=== PATIENT | male | born 1965 | race Caucasian/White ===

== ENCOUNTER → 2017-04-28 | Outpatient (CLI) | payer BC ==
--- NOTE | 2017-04-28 09:50 | DIAGNOSTIC IMAGING REPORT ---
CERVICAL WITHOUT CONTRAST CLINICAL HISTORY: 51 years-old Male presenting with MS, history of cervical lesions. TECHNIQUE: Multisequence, multiplanar MR imaging of the cervical spine was performed without the use of intravenous contrast. IV contrast: None. COMPARISON: 04/07/2016. FINDINGS: Localizer images: Unremarkable. Normal cervical lordosis. Vertebral bodies maintain normal height, alignment, bone marrow signal intensity. No significant disc height loss. Disc osteophyte complexes noted at C5-6 and C6-7. Minimal effacement at C5-6 results with greater degree of effacement at C6-7 in combination with ligamentum flavum hypertrophy. This is not a similar to the prior exam. Uncovertebral hypertrophy at C6-7 also results in mild bilateral neural foraminal narrowing. Degenerative changes at the atlantoaxial articulation. The previously noted abnormal spinal cord signal intensity along the left lateral aspect of the cord at C4-5 persists (series 7 image 9). This is not significantly changed in size or distribution from the prior exam. The previously suggested abnormal signal intensity in the left aspect of the spinal cord at C6-7 is not appreciated on the current exam. No convincing evidence of a new spinal cord lesion. Overall the spinal cord is normal in morphology. Craniocervical junction demonstrates pontine white matter lesions. Paraspinal soft tissues within normal limits. IMPRESSION: 1. Stable appearance of the white matter lesion in the spinal cord at C4-5. Previously suggested lesion at C6-7 is not appreciated on the current exam. No convincing evidence of a new spinal cord lesion. 2. Pontine white matter lesions as seen on prior exam. 3. Essentially stable spinal stenosis resulting from disc osteophyte complexes at C5-6 and C6-7. Electronically signed by: Salo Kramer M.D. 04/28/2017 9:49 AM Dictated Date/Time: 04/28/2017 9:41 AM
== END | disposition home or self-care (01) ==
LOC: C.MRIBC 08:29
PROVIDERS: ATTEND Psychiatry & Neurology Neurology
DX: G35 Multiple sclerosis (principal)

== ENCOUNTER → 2017-04-29 | Outpatient (CLI) | payer BC ==
--- NOTE | 2017-04-29 09:54 | DIAGNOSTIC IMAGING REPORT ---
BRAIN W/O FOR MS CLINICAL HISTORY: MS demyelinating disorder TECHNIQUE: Multiaxial MRI acquisition COMPARISON STUDY: 04/08/2016 FINDINGS: Multiple foci of increased signal throughout cerebral hemispheres consistent with that of a demyelinating disorder. No foci of increased signal on diffusion-weighted images. No new or interval findings. All foci described previously are unchanged. Ventricular system is midline. Internal auditory canals are symmetric. Optic nerves appear symmetric. Internal artery canals are symmetric. IMPRESSION: 1. Stable MRI of brain with no change in the multiple foci of increased signal throughout both cerebral hemispheres. 2. No evidence for new interval or progressive process. 3. No change from the prior exam. The above report was generated using voice recognition software. It may contain grammatical, syntax or spelling errors. Electronically signed by: Marcus Araiza M.D. 04/29/2017 9:53 AM Dictated Date/Time: 04/29/2017 9:48 AM
== END | disposition home or self-care (01) ==
LOC: C.MRIBC 08:27
PROVIDERS: ATTEND Psychiatry & Neurology Neurology
DX: G35 Multiple sclerosis (principal)

== ENCOUNTER 2017-09-04 14:29 | Emergency (ER) | payer OTHER ==
[~2017-09-04] VITALS: Ht 180.3 cm; Wt 96.7 kg
[~2017-09-04 14:29] MED LIST: ASPI81TA28 PO; COEN1CAP7 PO; EPP3/2 IM; FENO67CA2 PO; GLAT1INJ INJ; LISI-725 PO; MULT-506 PO; OMEG10007 PO; PHEN-905 PO; VITAMIN D PO
[2017-09-04 14:33] VITALS: TEMP 36.6; Ht 180.3 cm; Wt 96.7 kg
[2017-09-04] MEDS ORDERED: XYLOCAINE 1%/SOD BICARB 20 ML VIAL INFIL STA (14:43)
[2017-09-04] MEDS ORDERED: DIPHTHERIA/TETANUS/PERTUSSIS 0.5 ML SYR/VIAL IM. ONE (14:45)
[2017-09-04] MEDS ORDERED: CHOL400T PO (14:51)
--- NOTE | 2017-09-04 14:53 | EMERGENCY ROOM VISIT NOTE ---
ED Visit Note First contact with patient: 14:37 Chief Complaint: "smashed finger" History of Present Illness: This patient is a 52-year-old male who presents to the Emergency Department via private vehicle accompanied by for evaluation of their right fifth digit laceration. Patient sustained the laceration while operating a log splitter at home. They report a moderate amount of bleeding initially. They deny any numbness or tingling into the distal extremity. They report no decreased range of motion of the affected digit. Patient rates his current discomfort as a 2/10. Patient's Tetanus status is not currently up-to- date. Medications: As noted below Allergies: Doxycycline and bee stings PMH: No pertinent SHx: Patient lives locally with family. ROS: All pertinent positive and negative review of systems are appropriately documented in the History of Present Illness. Physical Exam: VITAL SIGNS - Vital signs and nursing notes were reviewed. Stable. GENERAL -52-year-old male appearing his stated age who is in no acute distress. Communicates well with provider and answers questions appropriately. SKIN - There is a large skin avulsion overlying the medial aspect of the patient 's right fifth digit extending from the DIP distally just sparing the bone and fingernail. The total size of this is approximately 2 cm in length by 1.5 cm in width. This is an avulsion with no skin flap. Upon further examination there are no deep structures including vessel, tendon, or bony structures appreciated. There is no active bleeding noted. MUSCULOSKELETAL - Laceration as described above. +5/5 strength appreciated of the affected digit. Full range of motion of the affected digit. NEUROLOGIC -neurovascularly intact in the affected digit with excellent blood flow distally. VASCULAR - Capillary refill was brisk. IMAGING: R FINGER(S) MIN 2 VIEWS ROUTINE CLINICAL HISTORY: R 5th digit crushed in log splitter COMPARISON: None. DISCUSSION: The bones and joint spaces appear intact. There is no evidence of fracture, dislocation or bony disease. Considerable soft tissue disruption with a partial substance loss overlying the distal phalanx. IMPRESSION: Soft tissue disruption. No acute bony abnormality. The above report was generated using voice recognition software. It may contain grammatical, syntax or spelling errors. Electronically signed by: Marcus Araiza M.D. 09/04/2017 3:12 PM Dictated Date/Time: 09/04/2017 3:11 PM ED Course: Patient was seen and evaluated by myself. Risks and benefits of performing primary wound closure versus no repair were discussed with the patient who verbalizes understanding. Verbal consent was obtained prior to performing the procedure. X-ray was obtained. No acute fracture. I did discuss the case with the on-call cost specialist, Dr. Erwin. He recommended suturing if able, and a dry dressing with Adaptic and follow-up in the office. He offered either Wednesday or Wednesday for the patient. This was relayed to the patient and the patient will call to establish this appointment. 5 cc of 1% buffered lidocaine was used to perform a digital block of the right fifth digit. The wound was cleansed and prepped in the typical sterile fashion utilizing normal saline and Betadine. Exeros irrigation system was utilized to pulsatile irrigate the wound. There was debris removed. The wound was sterilely draped. Once proper anesthetization was established, the wound was further examined and demonstrated an avulsed piece of skin without bone showing. The wound was copiously irrigated with normal saline and Betadine. The wound was closed using 3 simple, 4-0 nylon sutures with the wound edges being better approximated and excellent hemostasis. Patient tolerated the procedure well. No complications were met. The wound was cleansed and dressed with an Adaptic dressing. Patient was observed for some time to ensure no bleedthrough bleeding. A metal splint was provided as needed short prescription for oxycodone was given as well as Keflex. Patient received their Adacel vaccination. Patient educated on worrisome symptoms for return visit to the Emergency Department. Patient discharged to home in good condition. No red flags in the [employer] drug monitoring system. In the evaluation and treatment of this patient, the following differential diagnoses were considered: Finger Fracture, Finger Dislocation, Finger Sprain, Finger Contusion, Jersey Finger, or Mallet Finger. Current/Historical Medications Scheduled Aspirin (Aspirin Ec), 81 MG PO QAM Cephalexin Monohydrate (Keflex), 500 MG PO QID Cholecalciferol (Vitamin D), 400 UNITS PO QAM Coenzyme Q10 (Ubidecarenone) (Coq10), 200 MG PO QAM Epinephrine (Epipen), 0.3 MG IM UD Fenofibrate (Tricor), 67 MG PO QAM Fish Oil ([place]-3), 1 CAP PO QAM Glatiramer Acetate (Copaxone), 40 MG INJ 3XWEEK Lisinopril (Zestril), 20 MG PO QAM Multivitamin (Multivitamin), 1 TAB PO QAM Scheduled PRN Oxycodone Ir (Roxicodone Ir), 1-2 TAB PO Q6 PRN for Pain Xfiwbhztfqxwu-Gahqvolfeh-Mipfc (Nyquil Severe Cold/Flu 5-6.25-10-325 mg/15Ml), 30 ML PO HS PRN for RN Allergies Coded Allergies: BEE STING (Verified Allergy, Unknown, ANAPHYLAXIS, 09/04/17) Doxycycline (Verified Allergy, Unknown, "THROAT BURNING, TROUBLE SWALLOWING", 09/04/17) Vital Signs Date Time Temp Pulse Resp B/P (MAP) Pulse Ox O2 Delivery O2 Flow Rate FiO2 09/04/17 14:33 36.6 105 18 124/79 96 Room Air Medications Administered Medications (Trade) Dose Ordered Sig/Lima Route Start Time Stop Time Status Last Admin Dose Admin Diphtheria/ Pertussis/Tetanus Vacc (Adacel Inj) 0.5 ml ONCE ONCE IM. 09/04/17 14:45 09/04/17 14:46 DC 09/04/17 14:56 0.5 ML Departure Information Impression Primary Impression: Injury, crush, finger Dispostion Home / Self-Care Condition GOOD Prescriptions Oxycodone Ir (Roxicodone Ir) 5 Mg Tab 1-2 TAB PO Q6 Y for Pain, #15 TAB For Initial Treatment Prov: Stephane Campos PA-C 09/04/17 Cephalexin Monohydrate (Keflex) 500 Mg Cap 500 MG PO QID for 7 Days, #28 CAP Prov: Stephane Campos PA-C 09/04/17 Referrals Chris Galvin M.D. (PCP) Rodríguez Erwin MD Patient Instructions [facility] Additional Instructions Discharge Instructions: You have received 3 sutures on your finger. These sutures are NOT dissolvable and WILL need to be removed by a health care provider in 14 days. You can return to the Emergency Department or contact your Primary Care Provider to have the sutures removed (or orthopedic doctor) Please call the hand specialist first thing Wednesday morning to establish appointment. He notes that he could either see you Wednesday in [place] or [place] here in [place]. Wherever you would like to go please call that number first thing in the morning. Please indicate that you were seen in the emergency department on Wednesday and we personally spoke with Dr. Erwin and he would like to see you that day. [facility] [address] [place] [address] view less info [facility] [address] [place] [address] view less info Please wear the splint for comfort until the sutures are removed. Keflex 500 mg every 6 hours for infection prevention. This is an antibiotic. Oxycodone 1 tablet every 4-6 hours as needed for pain. This is a narcotic medication please no driving with this. Proper wound care is essential for adequate wound healing and infection prevention. Please do not submerge the wound. Please leave the existing dressing on for 2 days then change daily. Do not submerge in water. Look for signs of infection of the wound including: increased pain, swelling, foul discharge, streaking, or increased temperature. If any of these are noticed you should return to the Emergency Department for further assessment and treatment. As with any laceration you may have received nerve damage to the surrounding tissues. This damage may or may not be permanent. You should keep the area covered with sunscreen for the first 6 months to 1 year when at risk for exposure to help minimize scarring. You can also use scar reducing creams or Vitamin E oil to help minimize scarring. For pain control, you can use the following kyze-ogq-xvsjnqg medicines (if >12 yo): - Regular strength (325mg/tab) Tylenol (acetaminophen) 2 tabs every 4-6 hours as needed. Do not exceed 12 tablets in a 24 hour period. Avoid taking more than 3 grams (3000 mg) of Tylenol per day. This includes any other sources of acetaminophen you may take on a regular basis. - Regular strength (200 mg/tab) Advil (ibuprofen) 1-2 tabs every 4-6 hours as needed. Do not exceed a dose of 3200 mg per day. Return to the emergency department if your symptoms worsen despite treatment course outlined above.
--- NOTE | 2017-09-04 15:14 | DIAGNOSTIC IMAGING REPORT ---
R FINGER(S) MIN 2 VIEWS ROUTINE CLINICAL HISTORY: R 5th digit crushed in log splitter COMPARISON: None. DISCUSSION: The bones and joint spaces appear intact. There is no evidence of fracture, dislocation or bony disease. Considerable soft tissue disruption with a partial substance loss overlying the distal phalanx. IMPRESSION: Soft tissue disruption. No acute bony abnormality. The above report was generated using voice recognition software. It may contain grammatical, syntax or spelling errors. Electronically signed by: Marcus Araiza M.D. 09/04/2017 3:12 PM Dictated Date/Time: 09/04/2017 3:11 PM
[2017-09-04] MEDS ORDERED: CEPH500C PO (16:26)
[2017-09-04] MEDS ORDERED: OXYC1TAB3 PO (16:26)
[2017-09-04 16:44] VITALS: BP 125/81; PULSE 99; O2SAT 97
== END 2017-09-04 16:44 | disposition home or self-care (01) ==
LOC: C.EDB 14:31 → C.EDD 16:44
DX: S67.196A Crushing injury of right little finger, initial encounter (principal); S61.206A Unspecified open wound of right little finger without damage to nail, initial encounter; W31.89XA Contact with other specified machinery, initial encounter; Y92.009 Unspecified place in unspecified non-institutional (private) residence as the place of occurrence of the external cause; Y93.I9 Activity, other involving external motion; Y99.8 Other external cause status; Z23 Encounter for immunization; Z79.82 Long term (current) use of aspirin; Z91.030 Bee allergy status; Z88.1 Allergy status to other antibiotic agents

== ENCOUNTER → 2017-11-01 | Outpatient (CLI) | payer OTHER ==
[~2017-11-01] MED LIST changes: +CHOL400T PO; +OXYC1TAB3 PO; -VITAMIN D PO
--- NOTE | 2017-11-01 12:46 | DIAGNOSTIC IMAGING REPORT ---
CHEST 2 VIEWS ROUTINE CLINICAL HISTORY: Z01.818 ENCOUNTER FOR OTHER PREPROCEDURAL EXAMINATION PREOPERATIVE CHEST, recent pneumonia. Patient just finished antibiotics. Persistent wheezing. COMPARISON STUDY: 09/01/2017 FINDINGS: The cardiac and mediastinal contours are normal. There is no evidence of focal pulmonary consolidation. There is no evidence of failure. No pleural effusions are visualized.[ IMPRESSION: No active disease in the chest. Electronically signed by: Bismark Butterfield M.D. 11/01/2017 12:44 PM Dictated Date/Time: 11/01/2017 12:44 PM
== END | disposition home or self-care (01) ==
LOC: C.RAD 12:20
PROVIDERS: ATTEND Nurse Practitioner Family
DX: Z01.818 Encounter for other preprocedural examination (principal)

== ENCOUNTER 2017-11-11 08:21 | Day surgery (SDC) | payer BC, OTHER ==
[2017-09-01 08:38] VITALS: BMI 28.0
--- NOTE | 2017-09-01 09:04 | PAT Medication Instructions ---
Service Date Sep 01, 2017. Current Home Medication List Aspirin (Aspirin Ec), 81 MG PO QAM Coenzyme Q10 (Ubidecarenone) (Coq10), 200 MG PO QAM Epinephrine (Epipen), 0.3 MG IM UD Fenofibrate (Tricor), 67 MG PO QAM Fish Oil ([place]-3), 1 CAP PO QAM Glatiramer Acetate (Copaxone), 40 MG INJ 3XWEEK Lisinopril (Zestril), 20 MG PO QAM Multivitamin (Multivitamin), 1 TAB PO QAM Jspvjsushmjwf-Qzavvevuww-Mnouc (Nyquil Severe Cold/Flu 5-6.25-10-325 mg/15Ml), 30 ML PO HS PRN for RN [Vitamin D], 400 UNITS PO QAM Medication Instructions For Your Scheduled Surgery - Hold the following medications starting 09/02/17: Fish Oil ([place]-3), 1 CAP PO QAM Coenzyme Q10 (Ubidecarenone) (Coq10), 200 MG PO QAM - Check with prescribing physician for instructions: Glatiramer Acetate (Copaxone), 40 MG INJ 3XWEEK - Hold the following medications 24 hours prior to surgery: Fenofibrate (Tricor), 67 MG PO QAM - Hold the following medications the morning of surgery: Lisinopril (Zestril), 20 MG PO QAM Multivitamin (Multivitamin), 1 TAB PO QAM [Vitamin D], 400 UNITS PO QAM - Take the following medications the morning of surgery with a sip of water: Epinephrine (Epipen), 0.3 MG IM UD (if needed) Aspirin (Aspirin Ec), 81 MG PO QAM (okay to continue per surgeon) - Take the following medications as scheduled the night before surgery: Kqtqbdchvyupw-Cknyydmnla-Mzrig (Nyquil Severe Cold/Flu 5-6.25-10-325 mg/15Ml), 30 ML PO HS PRN for RN (if needed) Epinephrine (Epipen), 0.3 MG IM UD (if needed) If you have any questions please call us at [phone] or or [phone]
--- NOTE | 2017-09-01 09:38 | DIAGNOSTIC IMAGING REPORT ---
CHEST 2 VIEWS ROUTINE HISTORY: 52 years-old Male PAT preoperative exam. No acute chest complaints. COMPARISON: None available TECHNIQUE: PA and lateral views of the chest FINDINGS: Cardiac mediastinal and hilar silhouettes are within normal limits. There is no pneumothorax or pleural effusion. Mild right hemidiaphragmatic elevation. Linear subsegmental left basilar and right perihilar opacities suggest atelectasis. The bones of the chest appear grossly intact. IMPRESSION: No acute process. The above report was generated using voice recognition software. It may contain grammatical, syntax or spelling errors. Electronically signed by: Junior Isabel M.D. 09/01/2017 9:37 AM Dictated Date/Time: 09/01/2017 9:33 AM
[2017-09-01 10:22] LABS: BASO % 0.4 %; BASO ABS # 0.02 K/uL (0-0.2); EOS % 4.2 %; EOS ABS # 0.22 K/uL (0-0.5); HEMATOCRIT 41.3 % (42-52); HEMOGLOBIN 15.4 g/dL (14.0-18.0); IG# 0.01 K/uL (0.00-0.02); LYMPH % 34.6 %; MEAN CELL VOLUME 92.8 fL (80-100); MEAN CORPUSCULAR HEMOGLOBIN 34.6 pg (25-34); MEAN CORPUSCULAR HGB CONC 37.3 g/dl (32-36); MEAN PLATELET VOLUME 9.2 fL (7.4-10.4); MONO % 6.9 %; MONO ABS # 0.36 K/uL (0.11-0.59); NEUT % 53.7 %; NEUT ABS # 2.79 K/uL (1.4-6.5); PLATELET COUNT 323 K/uL (130-400); RED CELL DISTRIBUTION WIDTH CV 13.1 % (11.5-14.5); RED CELL DISTRIBUTION WIDTH SD 44.2 fL (36.4-46.3)
[2017-09-01 10:38] LABS: CREATININE 1.12 mg/dl (0.60-1.40); POTASSIUM 3.6 mmol/L (3.5-5.1)
[2017-11-09 08:36] VITALS: BMI 28.0
[~2017-11-11] VITALS: Ht 180.3 cm; Wt 93.7 kg
[~2017-11-11 08:21] MED LIST changes: +CHOL1000 PO; -CHOL400T PO; +FENO54TA PO; -FENO67CA2 PO; +LACTATED RINGER'S 1000ML 1,000 ML IV SCH; -OXYC1TAB3 PO
[2017-11-11 08:53] VITALS: BP 154/93; PULSE 103; TEMP 36.9; O2SAT 97; Ht 180.3 cm; Wt 93.7 kg
[2017-11-11] MEDS ORDERED: MIDAZOLAM HCL 1 MG/ML 2ML VIAL ONE (10:24)
[2017-11-11] MEDS ORDERED: FENTANYL CITRATE INJ 50 MCG/1 ML 2 ML VIAL ONE ×2 (10:24→11:15)
[2017-11-11] MEDS ORDERED: FENTANYL CITRATE INJ 50 MCG/1 ML 2 ML VIAL IV PRN (10:45)
[2017-11-11] MEDS ORDERED: ATROPINE SULFATE 0.1 MG/ML 5ML SYR IV PRN (10:45)
[2017-11-11] MEDS ORDERED: ONDANSETRON INJ 2 MG/ML 2 ML VIAL IV PRN ×2 (10:45→12:15)
[2017-11-11] MEDS ORDERED: EpHEDrine SULFATE INJ 50 MG/ML AMP IV PRN (10:45)
[2017-11-11] MEDS ORDERED: LABETALOL HCL IV 5 MG/ML 20ML IV PRN (10:45)
[2017-11-11] MEDS ORDERED: HYDROmorphone INJ 0.5 MG/0.5 ML SYR IV PRN (10:45)
[2017-11-11] MEDS ORDERED: PHENYLEPHRINE 100MCG/ML 5ML SYR IV PRN (10:45)
[2017-11-11] MEDS ORDERED: PROMETHAZINE HCL INJ 12.5 MG in SODIUM CHLORIDE 0.9% 50ML 50 ML IV PRN (10:45)
--- NOTE | 2017-11-11 11:00 | History & Physical Bridge Note ---
H&P Re-Evaluation Bridge Note: I have examined the patient, reviewed the History & Physical and in the interval since the performance of the History & Physical I have noted the following changes of clinical significance: No changes noted pt marked SO at bedside
[2017-11-11] MEDS ORDERED: OXYC-57 PO (11:01)
[2017-11-11] MEDS ORDERED: LIDOCAINE HCL 1% 20 ML VIAL ONE (11:03)
[2017-11-11] MEDS ORDERED: BACITRACIN 50000 UNIT VIAL ONE (11:03)
--- NOTE | 2017-11-11 11:03 | Discharge Instructions ---
Discharge Instructions Date of Service November 11, 2017. Visit Reason for Visit: Left Inguinal Hernia Discharge Discharge Diagnosis / Problem: repair of hernia Discharge Goals Goal(s): Decrease discomfort Activity Recommendations Activity Limitations: as noted below Lifting Limitations: no more than 10 pounds Shower/Bathe: tomorrow Driving or Machine Use: resume 3 days after discharge Anesthesia . Post Anesthesia Instructions: If you have had General Anesthesia or IV Sedation: * Do not drive today. * Resume driving when surgeon permits. * Do not make important decisions or sign legal documents today. * Call surgeon for: 1. Temperature elevations greater than 101 degrees F. 2. Uncontrollable pain. 3. Excessive bleeding. 4. Persistent nausea and vomiting. 5. Medication intolerance (nausea, vomiting or rash). * For nausea and vomiting use only clear liquids such as: tea, soda, bouillon until nausea subsides, then gradually increase diet as tolerated. * If you have any concerns or questions, call your surgeon's office. If physician is unavailable and it is an emergency, call 911 or go to the nearest emergency room. . Instructions / Follow-Up Instructions / Follow-Up Dr. Mullins in 1 week, call [phone] if you have any questions or need to schedule an appt Ice left groin on and off alternating every 20 minutes until bedtime Diet Recommendations Recommended Home Diet: no limitations Pending Studies Studies pending at discharge: no Medical Emergencies . Who to Call and When: Medical Emergencies: If at any time you feel your situation is an emergency, please call 911 immediately. . Non-Emergent Contact Non-Emergency issues call your: Surgeon Call Non-Emergent contact if: you have a fever, temperature is above 101.5, your pain is not controlled, wound has increased redness, you have any medication questions . . "Provider Documentation" section prepared by Rajiv Valerio. .
[2017-11-11] MEDS ORDERED: CEFAZOLIN SOD 1 GM VIAL ONE (11:36)
[2017-11-11] MEDS ORDERED: ROCURONIUM BROMIDE 10 MG/ML 5 ML VIAL ONE (11:36)
[2017-11-11] MEDS ORDERED: GLYCOPYRROLATE INJ 0.2 MG/ML VIAL ONE (11:37)
[2017-11-11] MEDS ORDERED: ONDANSETRON INJ 2 MG/ML 2 ML VIAL ONE (11:37)
[2017-11-11] MEDS ORDERED: NEOSTIGMINE METHYLSULFATE 5 MG/5 ML SYR ONE (11:37)
[2017-11-11] MEDS ORDERED: DEXAMETHASONE SOD INJ 4 MG/ML VIAL ONE (11:37)
[2017-11-11] MEDS ORDERED: ROPIVACAINE 0.5% 5 MG/ML 30 ML VIAL XX ONE (12:02)
--- NOTE | 2017-11-11 12:03 | [facility] Post Operative Brief Note ---
Immediate Operative Summary Operative Date November 11, 2017. Pre-Operative Diagnosis Large Left inguinal hernia Post-Operative Diagnosis Large Left inguinal hernia indirect and lipoma cord Procedure(s) Performed open left indirect hernia repair with marlex mesh and excision lipoma cord Surgeon Dr Miller Thiokol Operator Surgeon(s) Chana Muhammad PA-C Estimated Blood Loss 5cc Findings See Below as post op Specimens a. Left hernia sac and lipoma
[2017-11-11] MEDS ORDERED: LACTATED RINGER'S 1000ML 1,000 ML IV SCH (12:10)
[2017-11-11] MEDS ORDERED: MoRPHine SULFATE 4 MG/ML 1 ML CARP\\VIAL IV PRN (12:15)
[2017-11-11] MEDS ORDERED: OXYCODONE/ACETAMINOPHEN 5-325 TAB PO PRN (12:15)
--- NOTE | 2017-11-11 12:56 | Anesthesiology Progress Note ---
Anesthesia Post Op Note Date & Time November 11, 2017 at 12:55 Vital Signs Pain Intensity: 0 Vital Signs Past 12 Hours Date Time Temp Pulse Resp B/P (MAP) Pulse Ox O2 Delivery O2 Flow Rate FiO2 11/11/17 12:43 86 24 11/11/17 12:43 86 24 98 11/11/17 12:43 86 24 98 11/11/17 12:43 86 24 11/11/17 12:41 141/87 11/11/17 12:41 141/87 11/11/17 12:38 89 11 11/11/17 12:38 89 11 11/11/17 12:38 88 11 99 11/11/17 12:38 88 11 99 11/11/17 12:36 140/83 11/11/17 12:36 140/83 11/11/17 12:33 93 13 98 11/11/17 12:33 94 13 11/11/17 12:33 94 13 11/11/17 12:33 93 13 98 11/11/17 12:31 139/86 11/11/17 12:31 139/86 11/11/17 12:28 36.2 93 12 137/86 (101) 98 Oxymask 10 11/11/17 12:28 93 15 11/11/17 12:28 94 15 137/86 97 11/11/17 12:28 94 15 137/86 97 11/11/17 12:28 93 15 11/11/17 08:53 36.9 103 18 154/93 (113) 97 Room Air Notes Mental Status: alert / awake / arousable, participated in evaluation Pt Amnestic to Procedure: Yes Nausea / Vomiting: adequately controlled Pain: adequately controlled Airway Patency, RR, SpO2: stable & adequate BP & HR: stable & adequate Hydration State: stable & adequate Anesthetic Complications: no major complications apparent
[2017-11-11 13:20] VITALS: BP 135/74; PULSE 87; TEMP 36.6
[2017-11-11 13:50] VITALS: BP 135/90; PULSE 88; O2SAT 94
[2017-11-11 14:20] VITALS: BP 137/76; PULSE 66; TEMP 36.2; O2SAT 97
[2017-11-11 15:20] VITALS: BP 147/83; PULSE 85; TEMP 36.8; O2SAT 94
--- NOTE | 2017-11-11 15:47 | OPERATIVE REPORT ---
DATE OF OPERATION: 11/11/2017 SURGEON: Sanket Mullins M.D. RETAIL SUPPORT SPECIALIST: Rajiv Valerio PA-C. PREOPERATIVE DIAGNOSIS: Left inguinal hernia. POSTOPERATIVE DIAGNOSES: Left indirect inguinal hernia and lipoma of the cord. PROCEDURES: Open repair with Marlex mesh and excision lipoma of the cord. SUMMARY: The patient was brought into the operating room theater. The left lower quadrant was prepped with scrubbing solution and properly draped. Systemic antibiotic was given. 0.5% Marcaine was used to infiltrate two fingerbreadths medial to anterior superior iliac crest. This was skin wheeled and infiltrated more underneath the external oblique fascia. An incision was made parallel to the inguinal ligament, deepened through subcutaneous tissue onto the external oblique. More local anesthetic was used underneath the external oblique. The external oblique was opened along the course of its fibers of the external ring. The nerve was identified and they tracked. There was a fine branch up to the right proximal of the external ring that was going superiorly. We cut this as the main trunk was just lower and I was afraid that that would jeopardize traction. At this point, the cord and its structures were elevated over a Shirley drain. The patient was identified as having a left indirect hernia, which we freed it up from overlying the cord structures. We opened the hernia. There were no contents, sutured with 3-0 silk suture at the base, dividing it, resecting the hernial sac. The patient had a large lipoma similarly coming out the internal ring to which we resected its base, ligating it with 2-0 silk suture. At this point, we inspected the floor and appeared satisfactory while significantly weak. There was no other evidence of any weakness in the internal area. Therefore, we brought in a sheet of Marlex mesh and cut it appropriately to suture onto the symphysis pubis and inguinal ligaments superior to conjoined tendon, circumferentially around to reconstruct the internal ring that could only accommodate the tip of a hemostat. Prior to doing that, we had placed cord and the nerve along the cord structures prior to closing the ring. The area was then checked, hemostasis appeared satisfactory and more local anesthetic was used. The external oblique was opened, closed on top of the cord and the mesh and completely exteriorizing the mesh and cord from subcutaneous tissue, 2-0 Dexon otf were applied for skin edges. Dressing was applied. The procedure was tolerated well by the patient. Estimated blood loss approximately 5 mL. The patient was taken to recovery room in good condition. I attest to the content of the Intraoperative Record and any orders documented therein. Any exceptions are noted below. MTDD
[2017-11-11 16:50] VITALS: BP 135/74; PULSE 82; TEMP 36.5; O2SAT 96
== END 2017-11-11 17:15 | disposition home or self-care (01) ==
LOC: C.ACU 08:21
PROVIDERS: ATTEND Surgery
DX: K40.90 Unilateral inguinal hernia, without obstruction or gangrene, not specified as recurrent (principal); D17.6 Benign lipomatous neoplasm of spermatic cord; I10 Essential (primary) hypertension; G35 Multiple sclerosis; G37.9 Demyelinating disease of central nervous system, unspecified; E78.5 Hyperlipidemia, unspecified; M54.16 Radiculopathy, lumbar region; G95.9 Disease of spinal cord, unspecified; E55.9 Vitamin D deficiency, unspecified; Z83.3 Family history of diabetes mellitus; Z82.49 Family history of ischemic heart disease and other diseases of the circulatory system; Z79.899 Other long term (current) drug therapy; Z88.1 Allergy status to other antibiotic agents; Z91.030 Bee allergy status; Z87.891 Personal history of nicotine dependence

== ENCOUNTER 2021-12-01 05:14 | Observation (INO) ==
--- NOTE | 2021-11-07 14:12 | PAT Medication Instructions ---
Medication Instructions Date of Service November 07, 2021 Home Medications aspirin 81 mg tablet,delayed release (Aspir-) 81 mg PO QAM cholecalciferol (vitamin D3) 50 mcg (2,000 unit) tablet 2,000 unit PO QAM coenzyme Q10 100 mg capsule (CoQ-10) 200 mg PO QAM fenofibrate micronized 67 mg capsule 67 mg PO QAM multivitamin (Multiple Vitamins) 1 tab PO DAILY omega-3s 300 hl-mzi-lef-other zerin6y-jeux oil 1,000 mg capsule ([place]-3 Fish Oil) 1,000 mg PO QAM epinephrine 0.3 mg/0.3 mL injection, auto-injector 0.3 mg IM .INJECT 0.3ML INTRAMUSCULARLY DIRECTED. PRN atorvastatin 10 mg tablet (Lipitor) 10 mg PO HS lisinopril 10 mg tablet 10 mg PO QAM magnesium 250 mg tablet 250 mg PO QAM Continue as directed epinephrine 0.3 mg/0.3 mL injection, auto-injector 0.3 mg IM .INJECT 0.3ML INTRAMUSCULARLY DIRECTED. PRN (if needed) STOP taking 2 weeks before surgery coenzyme Q10 100 mg capsule (CoQ-10) 200 mg PO QAM omega-3s 300 lq-vdt-rnq-other gmrfl3h-epno oil 1,000 mg capsule ([place]-3 Fish Oil) 1,000 mg PO QAM STOP taking 48 hours before surgery fenofibrate micronized 67 mg capsule 67 mg PO QAM DO NOT take the morning of surgery cholecalciferol (vitamin D3) 50 mcg (2,000 unit) tablet 2,000 unit PO QAM multivitamin (Multiple Vitamins) 1 tab PO DAILY lisinopril 10 mg tablet 10 mg PO QAM magnesium 250 mg tablet 250 mg PO QAM Take morning of surgery With a small sip of water, OTHERWISE NOTHING TO EAT OR DRINK AFTER MIDNIGHT: aspirin 81 mg tablet,delayed release (Aspir-) 81 mg PO QAM (unless surgeon directed otherwise) Take evening before surgery atorvastatin 10 mg tablet (Lipitor) 10 mg PO HS Other Notes If you have any questions please call us at [phone] or [phone] or [phone] or [phone]
--- NOTE | 2021-11-12 09:49 | Anesthesiology Consultation ---
Date of Service November 12, 2021 Assessment & Plan (1) Encounter for pre-operative examination: - neuro video visit 10/27/21 [facility]: "...Currently on no DMT and feels well...Having shoulder surgery in November...Revealed the affects of anesthesia and the stress of the surgery may make him feel a bit off for a couple of weeks, but we anticipate he will improve when his body heals...continued monitoring off DMT with annual images and q6 months visits..." - COVID screening: Per assessment on 11/12/2021: Travel screen negative, no known COVID-19 positive contacts or current COVID-19 related symptoms in past 2 weeks. Pt vaccinated. Surgeon arranging preop COVID testing, scheduled 11/27/2021. Awaiting results. Chart Review Chart Review: Acceptable Risk for Surgery and Patient seen in Pre Admission Testing Teaching & Discussion Pre-Anesthesia Teaching/Discussion Notes: Instructed NPO after midnight before surgery, except medications with 15 cc of water. Medication instructions provided according to the PAT guidelines. History Surgery Operation Date: 12/01/21 07:00 Proposed Procedures p Right Total Shoulder Arthroplasty - Edmundo Blanc, Height/Weight Height: 5 ft 11 in Weight: 88.8 kg Allergies Allergy/AdvReac Type Severity Reaction Status Date / Time bee venom protein (honey bee) Allergy SV ANAPHYLAXIS Verified 11/07/21 10:14 doxycycline Allergy SV Throat Verified 11/07/21 10:14 burning, Trouble swallowing Medications Home Medications Medication Instructions Recorded Confirmed Last Taken aspirin 81 mg tablet,delayed 81 mg PO QAM 05/11/18 11/07/21 05/11/18 release (Aspir-) cholecalciferol (vitamin D3) 50 2,000 unit PO QAM 05/11/18 11/07/21 05/11/18 mcg (2,000 unit) tablet coenzyme Q10 100 mg capsule 200 mg PO QAM 05/11/18 11/07/21 05/11/18 (CoQ-10) fenofibrate micronized 67 mg 67 mg PO QAM 05/11/18 11/07/21 05/11/18 capsule multivitamin (Multiple Vitamins) 1 tab PO DAILY 05/11/18 11/07/21 05/11/18 omega-3s 300 iv-sqb-sdb-other 1,000 mg PO QAM 05/11/18 11/07/21 05/11/18 mckqq3z-arhj oil 1,000 mg capsule ([place]-3 Fish Oil) epinephrine 0.3 mg/0.3 mL 0.3 mg IM .INJECT 0.3ML 08/24/19 11/07/21 Unknown injection, auto-injector INTRAMUSCULARLY DIRECTED. PRN atorvastatin 10 mg tablet (Lipitor) 10 mg PO HS 11/07/21 11/07/21 Unknown lisinopril 10 mg tablet 10 mg PO QAM 11/07/21 11/07/21 Unknown magnesium 250 mg tablet 250 mg PO QAM 11/07/21 11/07/21 Unknown Past Medical History Medical History (Updated 11/12/21 @ 10:18 by Klaudia Burt PA-C) Hyperlipemia Hypertension controlled, stable per pt Multiple sclerosis current symptoms of fatigue, leg weakness/fatigability and occasional neck stiffness, denies falls, no meds, follows with S neuro Myelopathy Patient denies h/o stroke, seizures, heart attack, heart failure, DM, blood clots or blood transfusions. Exercise / Class Metabolic Activity II 4-5 Yardwork/Stairs/Walk up hill (denies CP or SOB with 1 FOS) Past Family History Family History Father Hypertension Cardiac disorder Diabetes Grandmother Cancer Diabetes Mother Diabetes Past Surgical History Surgical History (Updated 11/12/21 @ 16:05 by Klaudia Burt PA-C) H/O colonoscopy H/O decompression of ulnar nerve R H/O hernia repair (~10/2017) No post-op issues per anesthesia progress note. H/O oral surgery H/O vasectomy (06/2017) S/P carpal tunnel release (~08/2013) Past Anesthesia History No Hx of Anesthesia Complications and Other (son with loud expressions post-op) History of PONV No Hx of PONV and No Hx of Motion Sickness Social History Smoking Status: Never smoker Do You Dip or Chew Tobacco: No (QUIT 17 YEARS AGO) Hx Alcohol Use: No Hx Substance Use: No substance use type: does not use Review of Systems Occasional snoring, denies witnessed apneas or sleep studies. Occasional cough with seasonal allergies. Patient denies chest pain, shortness of breath, dyspnea on exertion, reflux, fever, chills, wheezing, or palpitations. Physical Exam Vital Signs Vitals BP 130/73 P 76 SP02 98% on RA RESP 17 Physical Limited cervical extension range of motion with discomfort TMD 3.5 finger breaths Mallampati Score 2 Dentition: full upper and lower dentures Lungs: normal respiratory effort. Clear throughout to auscultation, no adventitious breath sounds Cardiac: regular rate and rhythm, no murmurs noted Carotid arteries: negative bruit bilat Lab Results Anesthesia Preop Results Results Anesthesia Widget: WBC 5.87 K/uL (4.8-10.8) 11/12/21 Hgb 14.2 g/dL (14.0-18.0) 11/12/21 Hct 39.9 % (42-52) L 11/12/21 Plt 384 K/uL (130-400) 11/12/21 Na 139 mmol/L (136-145) 11/12/21 K 4.3 mmol/L (3.5-5.1) 11/12/21 Cl 105 mmol/L (98-107) 11/12/21 CO2 28 mmol/L (21-32) 11/12/21 BUN 8 mg/dl (6-23) 11/12/21 Creat 0.88 mg/dl (0.6-1.4) 11/12/21 Glucose Level 84 mg/dl (70-99(Fasting)) 11/12/21 PT 10.8 Seconds (9.0-12.0) 11/12/21 PTT 25.9 Seconds (21.0-31.0) 11/12/21 INR 1.0 (0.9-1.1) 11/12/21 Blood Type A Positive 11/12/21 Antibody Screen NEGATIVE 11/12/21 Testing Electrocardiogram Date: 11/12/21 NSR, rate 61 bpm Chest X-Ray Date: 11/12/21 Cardiomediastinal silhouette to be within normal limits. The lungs are clear of alveolar opacities. There is no evidence for effusion bilaterally. There is no evidence for vascular congestion. There is no acute osseous pathology. IMPRESSION: 1. No acute cardiopulmonary disease. Cervical Spine Date: 08/22/21 Evaluation of demyelinating lesions is limited without intravenous contrast. Please refer to the separate report of the brain for description of intracranial findings. There has been no significant interval change in a T2 hyperintense demyelinating plaque of the left lateral cord at the C4-C5 level when compared to December 2020. The previously questioned small equivocal demyelinating plaque of the left dorsal cord at the C4 level is grossly stable on series 9, image 19. No new demyelinating plaques are evident. There is preservation of the cervical lordosis without evidence of an acute fracture or traumatic listhesis. No evidence of a suspicious osseous lesion, paravertebral mass, or epidural fluid collection. There are dessicative changes of the intervertebral discs with moderate decrease in disc space height at C6-C7 and mild decrease at the more superior cervical levels. At C2-C3, there is no significant canal or foraminal stenosis. At C3-C4, there is no significant canal stenosis. Facet arthropathy causes minimal left foraminal narrowing. At C4-C5, there is no significant canal stenosis. Uncovertebral and facet arthropathy causes apparent dvrs-fp-tyngwycg left foraminal stenosis. At C5-C6, there is a disc bulge with a mild degree of canal stenosis. There is [id number]-dc-svwpmhmk bilateral foraminal stenosis. At C6-C7, there is a disc bulge and ligamentum flavum infolding resulting in [id number]-ll-gxqpjqnt canal stenosis. There is moderate to severe bilateral foraminal stenosis. At C7-T1, there is no significant canal or foraminal stenosis. IMPRESSION: Motion limited study. Evaluation of demyelinating plaques is limited without intravenous contrast. 1. Compared to the prior study of December 2020, there is stable demyelinating disease of the cervical cord without evidence of a new demyelinating lesion. 2. Multilevel degenerative changes, as above. Other Testing MRI brain 08/21/21 Compared to the prior study of December 2020, there has been no significant interval change in the burden of T2 hyperintense demyelinating plaques throughout the bilateral cerebral hemispheres, cerebellar hemispheres, and brainstem. Evaluation for active demyelinating lesions is limited without intravenous contrast. There is no evidence of an acute infarct, hemorrhage, or mass lesion. No extra- axial fluid collection or midline shift. The basal cisterns are patent. The flow voids of the major intracranial arteries are grossly preserved. No evidence of an acute calvarial or orbital abnormality. There is minimal mucosal thickening of the ethmoid air cells and maxillary sinus floors. The mastoid air cells do not demonstrate a significant abnormality. IMPRESSION: Limited study without intravenous contrast. Compared to the prior study of December 2020, there has been no significant interval change in the burden of demyelinating plaques throughout the brain, consistent with multiple sclerosis.
[2021-12-01] MEDS ORDERED: FAMOTIDINE 20 MG TAB PO SCH (06:00)
[2021-12-01] MEDS ORDERED: TRANEXAMIC ACID 1,000 MG **IV Intra-op IV SCH (06:00)
[2021-12-01] MEDS ORDERED: GABAPENTIN 300 MG CAP PO SCH (06:00)
[2021-12-01] MEDS ORDERED: Ketorolac (*for OR use only*) 30 MG, dexAMETHasone 4 MG, KETAMINE HCL (**OR use only) 1... INFIL SCH (06:00)
[2021-12-01] MEDS ORDERED: LR 60ML/HR IV SCH (06:00)
[2021-12-01] MEDS ORDERED: LR 15ML/HR IV SCH (06:00)
[2021-12-01] MEDS ORDERED: TRANEXAMIC ACID 1,000 MG **IV Pre-op IV SCH (06:00)
[2021-12-01] MEDS ORDERED: ACETAMINOPHEN 500 MG TAB PO SCH (06:00)
[2021-12-01] MEDS ORDERED: dexAMETHasone 4 MG TAB PO SCH (06:00)
[2021-12-01] MEDS ORDERED: ceFAZolin 2000MG 2,000 MG/15 ML SYR IV SCH (06:00)
--- NOTE | 2021-12-01 06:28 | History & Physical Bridge Note ---
Date of Service December 01, 2021 History & Physical Bridge Note I have examined the patient, reviewed the History & Physical and in the interval since the performance of the History & Physical I have noted the following changes of clinical significance: no changes noted
[2021-12-01] MEDS ORDERED: fentaNYL citrate 100 MCG/2 ML VIAL ONE (06:31)
[2021-12-01] MEDS ORDERED: MIDAZOLAM HCL 1 MG/ML 2ML VIAL ONE (06:31)
[2021-12-01] MEDS ORDERED: BUPIVACAINE 0.5 % 5 MG/1 ML PF 10ML VIAL ONE (06:32)
[2021-12-01] MEDS ORDERED: fentaNYL citrate 100 MCG/2 ML VIAL IV PRN (06:41)
[2021-12-01] MEDS ORDERED: ONDANSETRON INJ 2 MG/ML 2 ML VIAL ONE (06:41)
[2021-12-01] MEDS ORDERED: ATROPINE SULFATE 0.1 MG/ML 10ML SYR IV PRN (06:41)
[2021-12-01] MEDS ORDERED: ONDANSETRON INJ 2 MG/ML 2 ML VIAL IV PRN ×2 (06:41→09:40)
[2021-12-01] MEDS ORDERED: LIDOCAINE 2% 2 ML VIAL/AMP(20MG/ML) INFIL ONE (06:41)
[2021-12-01] MEDS ORDERED: KETOROLAC 30 MG/ML VIAL IV PRN (06:41)
[2021-12-01] MEDS ORDERED: DEXAMETHASONE SOD INJ 4 MG/ML VIAL ONE (06:41)
[2021-12-01] MEDS ORDERED: PROMETHAZINE HCL 12.5 MG in SODIUM CHLORIDE 0.9% 50 ML IV PRN (06:41)
[2021-12-01] MEDS ORDERED: PROPOFOL IV EMULSION 10 MG/ML 20 ML VIAL IV ONE (06:41)
[2021-12-01] MEDS ORDERED: ORTHO JOINT ANESTHETIC ONE (06:54)
[2021-12-01] MEDS ORDERED: ePHEDrine sulfate 50 MG/ML AMP ONE (07:43)
[2021-12-01] MEDS ORDERED: PHENYLEPHRINE HCL 10 MG/ML VIAL ONE (08:13)
--- NOTE | 2021-12-01 08:14 | Operative Report ---
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 Post-Op Diagnosis: Advanced osteoarthritis of the right shoulder with tendinopathy of the long head of the biceps tendon I identified the patient and participated in the time-out.: Yes Procedure Operation Date: 12/01/21 07:00 Actual Procedures p Right Total Shoulder Arthroplasty(Right) with open biceps tenodesis as a distinct and separate procedure (modifier 59)- Edmundo Blanc DO Surgeon Edmundo Blanc DO Perm[employer]ulture Designer Edmundo Santa PAC Estimated Blood Loss 100 Findings Consistent with Post-Op Diagnosis Specimens Right humeral head Complications none Disposition Disposition: Recovery Room Indications Kris is a pleasant 56-year-old male who is been dealing with chronic increasing right shoulder pain. X-rays and clinical examination were diagnostic for advanced arthritis of the right shoulder. After failing conservative treatment, he elected proceed with a right total shoulder arthroplasty. Description of Procedure A CPT code modifier 59: The long head of the biceps tendon was enlarged and inflamed consistent with tendinopathy. A tenodesis was opted. This was a separate and distinct portion of the procedure. For these reasons, a CPT code modifier 59 will be added to this case. Implants used: I used a [employer] Comprehensive total shoulder arthroplasty system with a size 16 press fit micro humeral stem, a size 50 x 24 eccentric humeral head, and a size 4glenoid with a trabecular metal peg. The glenoid was cemented in place with Palacos G cement. Marco arrived at [facility] for the above procedure. He was seen in the preoperative holding area and the operative extremity was identified and signed. He was given a preoperative antibiotic, TXA, and an interscalene nerve block. He was taken back to the operating room, laid on table in supine position, and put under general anesthesia. He was then put into the beachchair position. The shoulder was then prepped and draped in sterile fashion. A timeout was done and the patient and the operative extremity was properly identified. A deltopectoral approach was used. Dissection was taken down through the fascia and the deltoid was retracted laterally and the conjoined tendon was retracted medially. The anterior shoulder was exposed. The biceps groove was opened up and the biceps tendon was examined extensively. The biceps tendon demonstrated enlargement and inflammatory changes consistent with longstanding inflammation in the context of osteoarthritis. The long head of the biceps tendon was then tenodesed to the upper border of the pectoralis major. This was a separate and distinct portion of the procedure. The subscapularis was then released off the lesser tuberosity with a centimeter of cuff tissue remaining. The inferior capsule was released and the humeral head was dislocated. The rotator cuff was inspected and intact. A canal finding reamer was sent down the center of the humeral canal. Sequential reaming up to a size 16 reamer was done. Offset reamer a proximal humeral resection guide was placed. The proximal humerus was resected at 135 of inclination and 30 of retroversion. Inferior osteophytes were then removed and the glenoid was exposed. Time was spent doing an appropriate labral release. The glenoid measured to be a size 4. A 3.2 mm Steinmann pin was placed in the central hole of the glenoid vault pin guide. The glenoid was then reamed with a propeller reamer. The central post cutter was then used to prepare for the central boss. The cannulated peripheral peg drill guide was then placed and 3 peg holes were drilled. The final size 4 glenoid was then cemented in place with Palacos G cement. Surrounding soft tissues were then injected with 100 cc of an orthopedic pain control cocktail. Once cement had dried the proximal humerus was once again exposed. Sequential broaching of the humerus up to a size 16 broach was done. Off that broach a size 50 x 24 eccentric humeral head was trialed. The shoulder was then reduced, brought through a full range of motion, and felt to be stable. The shoulder was then dislocated and the broach was removed. The final size 16 micro humeral stem implant was then impacted into place. A size 50 x 24 eccentric humeral head was then impacted onto the humeral stem. The shoulder was then reduced and once again brought through a full range of motion and felt to be stable. The subscapularis was then tenodesed back to the lesser tuberosity with transosseous FiberWire sutures and side to side sutures with the arm in 45 of external rotation. 2 sutures were placed in the lateral rotator interval. A dilute betadyne lavage was then done for 3 minutes. The joint was then irrigated with normal saline solution. Hemostasis was obtained. The interval was closed with 2-0 Vicryl suture. The skin was closed with 2-0 Vicryl and otf. A Silverlon dressing was placed and the arm was rested in a regular arm sling. He was then extubated and transferred to a hospital bed. He was taken to the postanesthesia care unit in stable condition. He tolerated the procedure well. Edmundo Santa PA-C, was present for the entire procedure. He was critical for patient positioning, prepping, draping, retraction exposure, wound closure and application of sterile dressing. I attest to the content of the Intraoperative Record and any orders documented therein. Any exceptions are noted below.
--- NOTE | 2021-12-01 09:06 | XRay Report ---
XR shoulder RT min 2V routine CLINICAL HISTORY: Postoperative evaluation. COMPARISON: MRI of the right shoulder September 12, 2021. FINDINGS: Alignment of the right shoulder arthroplasty is anatomic. There is no periprosthetic fract ure or unexpected radiopaque foreign body. There are skin otf. IMPRESSION: Expected findings following right shoulder arthroplasty. ACT 112: Negative or not required by law. Electronically signed by: Nilo Tena M.D. 12/01/2021 9:04 AM
[2021-12-01] MEDS ORDERED: EPINEPHrine ADULT AUTO-INJECT 0.3 MG SYR IM PRN (09:40)
[2021-12-01] MEDS ORDERED: oxyCODONE HCL IR 5 MG TAB (IMMEDIATE RELEASE) PO PRN (09:40)
[2021-12-01] MEDS ORDERED: bisacodyL 10 MG SUPP PR PRN (09:40)
[2021-12-01] MEDS ORDERED: MAGNESIUM HYDROXIDE SUSP 30 ML UDC PO PRN (09:40)
[2021-12-01] MEDS ORDERED: SODIUM CHLORIDE 0.9% 1000ML 1,000 ML IV SCH (09:40)
[2021-12-01] MEDS ORDERED: METOCLOPRAMIDE HCL INJ 5 MG/ML 2 ML VIAL IV PRN (09:40)
[2021-12-01] MEDS ORDERED: HYDROmorphone INJ 0.5 MG/0.5 ML SYR IV PRN (09:40)
[2021-12-01] MEDS ORDERED: NALOXONE HCL 0.4 MG/1 ML VIAL/CARP IV PRN (09:40)
[2021-12-01] MEDS: CHOLECALCIFEROL 1,000 UNITS 25 MCG TAB PO SCH (10:40)
[2021-12-01] MEDS: MULTIVITAMIN TAB PO SCH (10:40)
[2021-12-01] MEDS: ASPIRIN 81 MG ECTAB PO SCH (10:41)
[2021-12-01] MEDS: DOCUSATE SODIUM 100 MG CAP PO SCH ×2 (10:41→20:42)
[2021-12-01] MEDS: lisinopril 10 MG TAB PO SCH (10:41)
[2021-12-01] MEDS: KETOROLAC 30 MG/ML VIAL IV SCH ×3 (11:39→23:59)
[2021-12-01] MEDS: ACETAMINOPHEN 500 MG TAB PO SCH ×2 (14:20→20:41)
[2021-12-01] MEDS: ceFAZolin 2000MG 2,000 MG/15 ML SYR IV SCH ×2 (14:20→20:42)
[2021-12-01] MEDS ORDERED: ATORVASTATIN 10 MG TAB PO SCH (21:00)
[2021-12-01] MEDS ORDERED: SENNA 8.6 MG TAB PO SCH (21:00)
[2021-12-02] MEDS: ACETAMINOPHEN 500 MG TAB PO SCH (04:49)
[2021-12-02] MEDS: KETOROLAC 30 MG/ML VIAL IV SCH (04:49)
--- NOTE | 2021-12-02 06:57 | Orthopedic Progress Note ---
Date of Service December 02, 2021 Assessment & Plan (1) Status post replacement of right shoulder joint: Overall he is doing very well. He is not having any pain in the right shoulder. He will be seen by physical therapy today for ambulation and range of motion exercises. He can be discharged home later today. He will follow-up with orthopedics in 2 weeks. Sanjay Lara was seen and examined at bedside this morning. Overall is doing very well. Is not having any pain in the right shoulder. He was able to get some sleep last night. Has no complaints. Review of Systems All systems reviewed & are unremarkable except as noted in HPI & below. Physical Exam On physical examination of the right shoulder, the dressing is clean and dry. Nerve block is still in effect and he does not have any motion of his hand or his wrist. Results & Data Results & Data Laboratory Results . Diagnostic Findings Postoperative x-rays of the right shoulder show the prosthesis to be in anatomic alignment without any evidence of fracture, desiccation, or loosening PG Care Time/CCT Total # of Minutes Spent Total Time Spent with Patient: Total time spent is greater than 50% in coordination of care (as documented) at patient's floor/unit and/or counseling patient: Coding Level of Care Code 47996 Post Operative Follow-Up Diagnoses Status post replacement of right shoulder joint Z96.611
--- NOTE | 2021-12-02 06:58 | Discharge Summary ---
Date of Service December 02, 2021 Principal Diagnosis Same as "Discharge Diagnosis" noted below under Discharge Instructions. Discharge Exam On physical examination of the right shoulder, the dressing is clean and dry. Nerve block is still in effect and he does not have any motion of his hand or his wrist. Discharge Data Procedures Performed Operation Date: 12/01/21 07:00 Actual Procedures p Right Total Shoulder Arthroplasty(Right) - Edmundo Blanc DO Ordered Studies 12/01/21 05:00 US - OR guided needle placemen Routine Hospital Course (1) Status post replacement of right shoulder joint: On December 01, 2021 Kris arrived at [facility] and underwent a right shoulder replacement without complication. He had a general anesthetic and a right interscalene nerve block. Postoperatively he was placed in a sling and transferred to the general orthopedic floors. His hospital course was uneventful. On postop day #1, his vital signs were stable and his pain was well controlled. He was able to participate well with physical therapy doing ambulation and range of motion exercises. He was then discharged home. He will follow-up with orthopedics in 2 weeks. PG Care Time/CCT Total # of Minutes Spent Total Time Spent with Patient: Total time spent is greater than 50% in coordination of care (as documented) at patient's floor/unit and/or counseling patient: Discharge Plan Discharge Items Patient Disposition: Home - Home Health Services Reason For Visit: DJD Shoulder Right Discharge Diagnosis: Right shoulder replacement Activity: Per Instructions section Non-emergency contact: Surgeon Call non-emergency contact if: your wound has increased redness and your wound has increased drainage Follow-up/Referrals: Neal Dwyer [Primary Care Provider] - Diet: Regular Addtl Attending Provider Instructions: Activity and Therapy Recommendations: * If you are using [facility] then therapy will be provided at your home until they feel you have accomplished all of your goals. * If you are using [facility] then Physical Therapy will be provided until they feel you are ready to start Outpatient Physical Therapy. * If you are not using home therapy then Outpatient Physical Therapy should start about 3-5 days from your day of surgery. Therapy will last about 8-12 weeks * Wear your sling for 3 weeks, unless otherwise instructed. You may remove your sling to shower and to dress, but otherwise, you should be in your sling at all times, including while sleeping * The shoulder replacement is very stable and you can use your hand while in the sling * You were shown a series of exercises in the hospital. Do these exercises daily including the exercises you were shown in physical therapy. Medications: * Narcotic You will likely be sent home from the hospital with a prescription for the narcotic pain medication that worked best throughout your stay. * Other medications may be prescribed for specific circumstances. If you have any questions, please call the office at . * Resume previous home medications unless otherwise instructed Dressing Care: Leave the Silverlon dressing in place for 7 days. After 7 days you may remove the dressing. If the incision is not draining then you may leave the otf open to air. If there is a little bit of drainage or if the otf are getting stuck on your clothing then cover the incision with a dry dressing. The otf will be removed at your 2 week follow-up appointment. Showering: You may shower with the Silverlon dressing in place. Do not let the shower spray hit the dressing directly. Pat the Silverlon dressing dry. If the dressing becomes wet underneath, then simply remove the dressing. Keep the incision dry until you are 7 days out from the day of surgery. After 7 days you may remove the Silverlon dressing and shower with the otf exposed. Let soapy water run over the otf and pat them dry. Do not scrub or soak the incision. Things To Watch For: * Drainage from the incision site that occurs more than one week after your surgery. * Increased redness at the incision site. * Fever above 102 degrees Fahrenheit. * Unusual chest pain or shortness of breath. * Call [facility] at with any of the above problems Follow-Up Visit: Follow-up with Dr. Blanc's PA (Edmundo Santa) 2-3 weeks after your day of surgery. He will remove your otf and answer any questions. If you have any additional questions or concerns, Dr Blanc is usually in the office at the same time and will be available An appointment was probably scheduled when you signed-up for surgery in the office. If you have any questions call More detailed instructions as well as Frequently Asked Questions were provided in a folder by our office when you signed-up for surgery. Please review these instructions when you get home. If you have any further questions or concerns, please feel free to call the office at [phone] Pending Studies at Discharge: No Stand-Alone Forms: My [facility] Medications and DC Order Prescriptions: New oxycodone-acetaminophen 5-325 mg tablet 1 tab PO Q6H PRN (Reason: pain) Qty: 30 RF: 0 Continued epinephrine 0.3 mg/0.3 mL auto-injector 0.3 mg IM .INJECT 0.3ML INTRAMUSCULARLY DIRECTED. PRN (Reason: Anaphylaxis) RF: 0 fenofibrate micronized 67 mg capsule 67 mg PO QAM RF: 0 multivitamin [Multiple Vitamins] Tablet 1 tab PO DAILY RF: 0 aspirin [Aspir-81] 81 mg Tablet,Delayed Release (Dr/Ec) 81 mg PO QAM RF: 0 coenzyme Q10 [CoQ-10] 100 mg Capsule 200 mg PO QAM RF: 0 cholecalciferol (vitamin D3) 2,000 unit Tablet 2,000 unit PO QAM RF: 0 [place]-3 Fish Oil 300-1,000 mg Capsule 1,000 mg PO QAM RF: 0 atorvastatin [Lipitor] 10 mg Tablet 10 mg PO HS RF: 0 lisinopril 10 mg Tablet 10 mg PO QAM RF: 0 magnesium 250 mg Tablet 250 mg PO QAM RF: 0 Discharge Orders: Discharge Order (Routine); Ordered 12/02/21 Ordered By: Edmundo Blanc Admission Data Admit Date/Time: 12/01/21 08:33 Attending Provider: Edmundo Blanc Admit Provider: Edmundo Blanc Primary Care Provider: Neal Dwyer
[2021-12-02] MEDS ORDERED: dexAMETHasone 4 MG TAB PO SCH (08:00)
[2021-12-02] MEDS: ASPIRIN 81 MG ECTAB PO SCH (08:14)
[2021-12-02] MEDS: CHOLECALCIFEROL 1,000 UNITS 25 MCG TAB PO SCH (08:14)
[2021-12-02] MEDS: DOCUSATE SODIUM 100 MG CAP PO SCH (08:14)
[2021-12-02] MEDS: lisinopril 10 MG TAB PO SCH (08:14)
[2021-12-02] MEDS: MULTIVITAMIN TAB PO SCH (08:14)
[2021-12-02] MEDS ORDERED: FENOFIBRATE NANOCRYSTALLIZED 48 MG TABLET PO SCH (09:00)
[2021-12-02] MEDS ORDERED: MAGNESIUM OXIDE 400 MG TAB PO SCH (09:00)
== END 2021-12-02 11:39 | disposition home or self-care (01) ==
LOC: 3E 05:14 → ASU 05:14